=== PATIENT | male | born 1965 | race African-American/Black ===

== ENCOUNTER 2016-11-18 09:19 | Emergency (ER) | payer OTHER ==
[~2016-11-18] VITALS: Ht 180.3 cm; Wt 88.0 kg
[2016-11-18] MEDS ORDERED: NOHOMEMEDICATIONS (09:21)
[2016-11-18 09:50] LABS: ABSOLUTE NEUTROPHILS 3.7 thou/uL (1.4-8.2); BASOPHILS 0.7 % (0.0-2.0); EOSINOPHILS 4.7 % (0.0-3.0); HEMATOCRIT 35.1 % (42.0-52.0); HEMOGLOBIN 11.6 gm/dL (14.0-18.0); LYMPHOCYTES 30.6 % (24.0-44.0); MCH 29.5 pg (26.0-34.0); MCHC 32.9 g/dL (28.0-37.0); MCV 89.7 fL (80.0-100.0); MONOCYTES 7.4 % (1.0-8.0); PLATELET COUNT 193 thou/uL (150-400); POLYS 56.6 % (36.0-66.0); RBC 3.91 mil/uL (4.50-6.00); RDW 13.1 % (10.5-14.5); WBC 6.6 thou/uL (4.0-11.0)
[2016-11-18 09:53] LABS: MANUAL DIFF NO
[2016-11-18 10:01] LABS: CALCIUM 9.3 mg/dL (8.5-10.1); CREATININE 1.1 mg/dL (0.7-1.3); POTASSIUM 3.5 mmol/L (3.5-5.1)
[2016-11-18 10:06] LABS: APTT 23.1 Seconds (24.5-32.8)
[2016-11-18 10:07] LABS: ALBUMIN 4.1 g/dL (3.4-5.0); DIRECT BILIRUBIN 0.1 mg/dL (<0.1-0.3); TOTAL BILIRUBIN 0.5 mg/dL (<0.1-1.0); TOTAL PROTEIN 7.3 g/dL (6.4-8.2)
[2016-11-18] MEDS ORDERED: ZANTAC 150MG T150 MG PO (12:25)
[2016-11-18 12:41] VITALS: BP 118/70
== END 2016-11-18 13:00 | disposition home or self-care (01) ==
LOC: ER 09:19
PROVIDERS: Nurse Practitioner
DX: K92.1 Melena (principal)